=== PATIENT | female | born 1980 | race Caucasian/White ===

== ENCOUNTER → 2018-10-18 | Outpatient (CLI) | payer OTHER ==
[~2018-10-18] MED LIST: ENOX40DI8 SQ; NOVOLOG SUBQ
[2018-10-18 09:55] LABS: PLATELET COUNT, AUTOMATED 229 K/uL (150-450)
== END ==
LOC: LAB 09:24
PROVIDERS: ATTEND Obstetrics & Gynecology
DX: Z34.91 Encounter for supervision of normal pregnancy, unspecified, first trimester (principal)
CPT/HCPCS: 36415; 81001; 85025; 86592; 86703; 86762; 86850; 86900; 86901; 87088; 87340